=== PATIENT | female | born 1980 ===

== ENCOUNTER 2022-12-20 10:44 | Inpatient (IN) | payer OTHER ==
[~2022-12-20] VITALS: Ht 165.1 cm; Wt 59.0 kg
[2022-12-20] MEDS ORDERED: ALBUTEROL0.63 MG/3 IH (13:18)
[2022-12-20] MEDS ORDERED: IPRATROPIU0.2 MG/1 M IH (13:19)
[2022-12-20] MEDS ORDERED: ANORO ELLIPTA1 EACH IH (13:19)
[2022-12-20] MEDS ORDERED: MUCINEX600 MG PO (13:20)
[2022-12-20] MEDS ORDERED: LEVO-T50 MCG PO (13:20)
[2022-12-22] MEDS ORDERED: MONTELUKAST SOD10 MG (07:43)
== END 2022-12-24 13:48 | disposition home or self-care (01) | DRG 743 ==
LOC: OB/GYN 12-22 05:14 → O/R 12-22 05:14 → SURG 12-22 07:00 → OB/GYN 12-22 09:37 → SURG 12-22 11:45 → OB/GYN 12-24 13:48
PROVIDERS: ADMIT Obstetrics & Gynecology Gynecologic Oncology; ATTEND Obstetrics & Gynecology Gynecologic Oncology
PROC: 0UT60ZZ Resection of Left Fallopian Tube, Open Approach (ICD-10-PCS; 2022-12-22)
PROC: 0UT10ZZ Resection of Left Ovary, Open Approach (ICD-10-PCS; 2022-12-22)
PROC: 0TN70ZZ Release Left Ureter, Open Approach (ICD-10-PCS; 2022-12-22)
PROC: 0TN60ZZ Release Right Ureter, Open Approach (ICD-10-PCS; 2022-12-22)
PROC: 0TTB0ZZ Resection of Bladder, Open Approach (ICD-10-PCS; 2022-12-22)
PROC: 0BTK0ZZ Resection of Right Lung, Open Approach (ICD-10-PCS; 2022-12-22)
PROC: 0UT90ZZ Resection of Uterus, Open Approach (ICD-10-PCS; principal; 2022-12-22 07:00)
DX: D25.1 Intramural leiomyoma of uterus (principal); N80.03 Adenomyosis of the uterus; Z20.822 Contact with and (suspected) exposure to COVID-19; N80.00 Endometriosis of the uterus, unspecified; N80.519 Endometriosis of the rectum, unspecified depth; N80.A0 Endometriosis of bladder, unspecified depth; N83.12 Corpus luteum cyst of left ovary; N83.11 Corpus luteum cyst of right ovary; N80.102 Endometriosis of left ovary, unspecified depth; J84.10 Pulmonary fibrosis, unspecified

== ENCOUNTER 2022-12-20 14:19 | Outpatient (CLI) | payer OTHER ==
[~2022-12-20 14:19] MED LIST: ALBUTEROL0.63 MG/3 IH; ANORO ELLIPTA1 EACH IH; IPRATROPIU0.2 MG/1 M IH; LEVO-T50 MCG PO; MUCINEX600 MG PO
== END 2022-12-20 14:25 | disposition home or self-care (01) ==
LOC: RAD 14:19
PROVIDERS: ATTEND Internal Medicine
DX: R07.89 Other chest pain (principal)